=== PATIENT | female | born 1960 | race Caucasian/White ===

== ENCOUNTER 2020-08-16 07:53 | Observation (INO) ==
[2020-08-16] MEDS ORDERED: SODIUM CHLORIDE 0.9% 500 ML IV STA (08:14)
[2020-08-16] MEDS ORDERED: ASPIRIN 325 MG TABLET PO STA (08:14)
[2020-08-16] MEDS ORDERED: MECLIZINE 25 MG TABLET PO STA (08:15)
[2020-08-16 08:40] LABS: Basophils # 0.1 10*3/uL (0.0-0.2); Eosinophils # 0.1 10*3/uL (0.0-0.87); Eosinophils % 1.6 % (0.00-10.9); Hematocrit 44.2 VOL% (35.7-47.0); Hemoglobin 14.7 GM/DL (12.0-16.0); Immature Granulocytes % 0.3 %; Immature Granulocytes Absolute 0.02 #; Lymphocytes % 28.8 % (21.3-54.2); Mean Corpuscular HGB Conc 33.3 GM/DL (32-36); Mean Corpuscular Volume 88.2 FL (87-102); Mean Platelet Volume 13.1 FL (9.6-12.0); Monocytes % 5.2 % (1.7-12.7); Neutrophils % 63.1 % (38.7-73.9); Platelet Count 198 T/CUMM (130-400); Red Blood Count 5.01 MC/CUMM (3.8-5.5); Red Cell Distribution Width 14.3 % (9.3-17.3); White Blood Count 6.9 T/CUMM (4-12)
[2020-08-16 08:51] LABS: PT Patient Result 10.7 SECS (10.5-12.0)
[2020-08-16 09:05] LABS: Bilirubin,Total 0.6 MG/DL (0.2-1.0); Osmolality,Calculated 274.4 MOS/KG (273-304); Potassium 3.2 MMOL/L (3.5-5.1)
[2020-08-16 09:15] LABS: Bacteria,Urine Occasional /HPF (Few); Bilirubin,Urine Negative (Negative); Blood, Urine Moderate mg/dL (Negative); Glucose,Urine (UA) Negative (Negative); Ketones,Urine Negative (Negative); Mucus,Urine Occasional /LPF (Occasional); Nitrite,Urine Negative (Negative); Protein,Urine Negative; RBC,Urine 4 /HPF (0-4); Squamous Epithelial Cell,Urine Occasional /HPF (0-10); Urine Appearance CLEAR (Clear); Urine Color Straw (Yellow); Urine Specific Gravity 1.005 (1.001-1.035); Urine Urobilinogen < 2.0 EU/DL (0.2-1.0)
[2020-08-16] MEDS ORDERED: hydrALAZINE 20 MG/1 ML VIAL IV STA (10:08)
[2020-08-16] MEDS ORDERED: ONDANSETRON 4 MG/2 ML VIAL IV PRN (10:22)
[2020-08-16] MEDS ORDERED: hydrALAZINE 20 MG/1 ML VIAL IV PRN (10:22)
[2020-08-16] MEDS ORDERED: ACETAMINOPHEN 325 MG TABLET PO PRN (10:22)
[2020-08-16] MEDS ORDERED: GLUCAGON 1 MG VIAL IM PRN (10:22)
[2020-08-16] MEDS ORDERED: DEXTROSE 50% 25 GM/50 ML VIAL IV PRN (10:22)
[2020-08-16] MEDS ORDERED: lisinopriL 2.5 MG TABLET ONE (10:49)
[2020-08-16] MEDS ORDERED: ENOXAPARIN 40 MG/0.4 ML SYRINGE ONE (10:54)
[2020-08-16] MEDS: cefTRIAXone 1,000 MG in SODIUM CHLORIDE 0.9% 100 ML IV SCH (11:06)
[2020-08-16] MEDS: PANTOPRAZOLE 40 MG TABLET PO SCH (11:06)
[2020-08-16] MEDS: lisinopriL 10 MG TABLET PO SCH (11:17)
[2020-08-16] MEDS: LACTATED RINGERS 1,000 ML IV SCH ×2 (13:30→21:46)
[2020-08-16] MEDS: ENOXAPARIN 40 MG/0.4 ML SYRINGE SUBCUT SCH (13:47)
[2020-08-17 05:27] LABS: Basophils # 0.1 10*3/uL (0.0-0.2); Basophils % 0.9 % (0.0-0.8); Eosinophils # 0.2 10*3/uL (0.0-0.87); Eosinophils % 3.8 % (0.00-10.9); Hematocrit 40.9 VOL% (35.7-47.0); Hemoglobin 13.3 GM/DL (12.0-16.0); Immature Granulocytes % 0.2 %; Immature Granulocytes Absolute 0.01 #; Lymphocytes # 2.4 10*3/uL (1.4-4.0); Lymphocytes % 45.9 % (21.3-54.2); Mean Corpuscular HGB Conc 32.5 GM/DL (32-36); Mean Corpuscular Volume 88.9 FL (87-102); Mean Platelet Volume 13.8 FL (9.6-12.0); Monocytes % 6.2 % (1.7-12.7); Platelet Count 152 T/CUMM (130-400); Red Cell Distribution Width 14.5 % (9.3-17.3); White Blood Count 5.3 T/CUMM (4-12)
[2020-08-17] MEDS: LACTATED RINGERS 1,000 ML IV SCH ×2 (05:52→12:03)
[2020-08-17 05:57] LABS: Calcium 8.5 MG/DL (8.5-10.1); Osmolality,Calculated 283.8 MOS/KG (273-304); Potassium 3.2 MMOL/L (3.5-5.1); Thyroid Stimulating Hormone 3.16 uIU/ml (0.358-3.74)
[2020-08-17 06:10] LABS: Risk Ratio 2.52; VLDL CHOLESTEROL 13.8 MG/DL
[2020-08-17] MEDS: PANTOPRAZOLE 40 MG TABLET PO SCH (09:30)
[2020-08-17] MEDS: lisinopriL 10 MG TABLET PO SCH (09:30)
[2020-08-17] MEDS: ASPIRIN EC 325 MG TABLET PO SCH (09:30)
[2020-08-17] MEDS: cefTRIAXone 1,000 MG in SODIUM CHLORIDE 0.9% 100 ML IV SCH (12:15)
[2020-08-17] MEDS: ENOXAPARIN 40 MG/0.4 ML SYRINGE SUBCUT SCH (12:16)
[2020-08-18 06:35] LABS: Calcium 8.6 MG/DL (8.5-10.1); Osmolality,Calculated 280.1 MOS/KG (273-304); Potassium 3.4 MMOL/L (3.5-5.1)
[2020-08-18] MEDS: PANTOPRAZOLE 40 MG TABLET PO SCH (08:43)
[2020-08-18] MEDS: ASPIRIN EC 325 MG TABLET PO SCH (08:44)
[2020-08-18] MEDS: lisinopriL 10 MG TABLET PO SCH (08:44)
[2020-08-18] MEDS: cefTRIAXone 1,000 MG in SODIUM CHLORIDE 0.9% 100 ML IV SCH (10:49)
[2020-08-18] MEDS: ENOXAPARIN 40 MG/0.4 ML SYRINGE SUBCUT SCH ×2 (10:49→12:19)
[2020-08-18 12:22] VITALS: BP 147/77
== END 2020-08-18 15:28 | disposition home or self-care (01) ==
LOC: N.EDINP 07:53 → N.ED 07:53 → SUATTDRO 10:23 → N.TELEN 11:03
PROVIDERS: ADMIT Phlebology; ATTEND Internal Medicine